=== PATIENT | female | born 1995 | race Caucasian/White ===

== ENCOUNTER 2017-01-01 19:29 | Emergency (ER) | payer OTHER ==
--- NOTE | 2017-01-01 20:10 | RAD ---
LEFT ANKLE THREE VIEWS: 01/01/17 HISTORY: Left ankle pain, injury. FINDINGS/IMPRESSION: The ankle mortise is maintained. No acute fracture or dislocation is identified. POS: [id number]
== END 2017-01-01 20:30 | disposition home or self-care (01) ==
LOC: SCSER 19:29
DX: S93.402A Sprain of unspecified ligament of left ankle, initial encounter (principal); F41.9 Anxiety disorder, unspecified; W10.9XXA Fall (on) (from) unspecified stairs and steps, initial encounter